=== PATIENT | female | born 1955 | race Caucasian/White ===

== ENCOUNTER → 2020-02-07 | Outpatient (CLI) | payer OTHER ==
--- NOTE | 2020-02-07 13:23 | WOMENS IMAGING REPORT ---
EXAM DESCRIPTION: BONE DENSITY HIP/SPINE IMAGES COMPLETED DATE/TIME: 02/07/2020 1:03 pm REASON FOR STUDY: Z01.89 ENCOUNTER FOR OTHER SPECIFIED SPECIAL EXAMINATIONS Z01.89 ENCOUNTER FOR OT HER SPECIFIED SPECIAL EXAMINATIONS COMPARISON: 10/22/2015 TECHNIQUE: Dual-Energy X-ray Absorptiometry (DEXA) of the AP Spine and Hip. LIMITATIONS: None. FINDINGS: LUMBAR SPINE: The bone mineral density (BMD) measured from L1-L4 in the AP projection correlates with a T-score of -0.7, which is normal as defined by the World Health Organization. BMD Change vs Baseline: +9.7% HIP: The bone mineral density (BMD) measured in the left hip correlates with a T-score of -2.1, which is o steopenia as defined by the World Health Organization. BMD Change vs Baseline: -8.5% 10 year Fracture Risk Assessment: Major Osteoporotic Fracture: 11% Hip Fracture: 1.9% IMPRESSION: 1. LUMBAR SPINE WHO CLASSIFICATION: NORMAL. 2. HIP WHO CLASSIFICATION: OSTEOPENIA. COMMENT: The World Health Organization defines low BMD as follows: T-score: Normal: At or above -1.0 Osteopenia: Between -1.0 and -2.5 Osteoporosis: At or below -2.5 without fractures Established osteoporosis: At or below -2.5 with fractures In general, you may wish to consider: Diagnosis Treatment Follow-up DEXA Normal BMD Prevention 2-3 years Osteopenia Prevention/Therapy 1-2 years Osteoporosis Therapy Yearly TECHNICAL DOCUMENTATION: JOB ID: [id number] 2010 [employer]- All Rights Reserved Reading location - IP/workstation name: [email or web address]
== END ==
LOC: WI 12:43
PROVIDERS: ATTEND Clinical Nurse Specialist Adult Health
DX: M85.88 Other specified disorders of bone density and structure, other site (principal)
CPT/HCPCS: 77080

== ENCOUNTER 2020-03-09 06:35 | Day surgery (SDC) | payer MEDICARE, OTHER ==
[~2020-03-09 06:35] MED LIST: KETOROLAC TROMETHAMINE 0.45% 4 DROP/0.4 ML DROPERETTE OS PRN
[2020-03-09] MEDS: CYCLOPENTOLATE 0.2%/PHENYLEPHRINE 1% OPH SOLN 2 ML OS PRN ×3 (06:50→07:12)
[2020-03-09] MEDS: TETRACAINE HCL 0.5% OPH SOLN 4 ML OS PRN ×3 (06:50→07:32)
[2020-03-09] MEDS: TROPICAMIDE 1% OPH SOLN 15 ML OS PRN ×3 (06:50→07:12)
[2020-03-09] MEDS: BESIFLOXACIN HCL 0.6% OPH SUSP 5 ML BOTTLE OS PRN ×4 (06:50→07:58)
[2020-03-09] MEDS ORDERED: MIDAZOLAM 2 MG/2 ML INJ ONE ×2 (07:11→07:39)
[2020-03-09] MEDS: LIDOCAINE 1%/PHENYLEPHRINE 1.5% 1 ML VIAL ONE ×2 (07:41→07:42)
[2020-03-09] MEDS: EPINEPHRINE INJ/PF 1 MG/1 ML AMPULE ONE ×2 (07:41→07:42)
[2020-03-09] MEDS: CHONDR SU A NA/HYALUR INTRAOC KIT (SURGICARE) ONE ×2 (07:41→07:42)
[2020-03-09] MEDS: PREDNISOLONE ACETATE 1% OPH SUSP 5 ML OS PRN ×2 (07:58)
[2020-03-09] MEDS: DORZOLAMIDE HCL 2%/TIMOLOL MALEAT 0.5% OPH SOLN 10 ML OS PRN ×2 (07:58)
--- NOTE | 2020-03-09 11:30 | Operative Report ---
Operative Report-[facility] Operative Report: DATE OF SURGERY: 03/09/2020 PREOPERATIVE DIAGNOSIS: Cataracts, left eye POSTOPERATIVE DIAGNOSIS: Cataract, left eye OPERATION: Cataract extraction with insertion of an IOL of the left eye. Intraocular Lens Model: [29.5 SN 60 WF] She underwent surgery for difficulty seeing road signs SURGEON: David Izquierdo MD ANESTHESIA: Topical PROCEDURE: After obtaining appropriate consent, the patient's left eye was prepped and draped in a sterile fashion as well as the surgeon in the sterile manner and cataract surgery was started. First a paracentesis blade was used to make a side-port incision. Viscoelastic was used to inflate the anterior chamber. Next a 2.4 mm incision was made with a 2.4 mm blade, clear corneal temporarily. A continuous capsulorrhexis was made using a cystotome and Utrata forceps. Following this hydrodissection was carried out to make the lens fully loose and mobile and it was rotated 90 degrees. Following this, a divide and conquer technique was used to phacoemulsify the lens. The remaining cortex was removed with an irrigation/aspiration. Provisc was instilled into the capsular bag to inflate the bag.The intraocular lens was placed. The remaining viscoelastic material was removed with irrigation/aspiration. Following this, the incision was found to be watertight. Besivance and Cosopt was instilled into the eye and a protective shield was placed over the eye. The patient was returned to the postoperative recovery in a stable condition.
== END 2020-03-09 08:33 | disposition home or self-care (01) ==
LOC: SC 06:35
PROVIDERS: ATTEND Internal Medicine
DX: H25.12 Age-related nuclear cataract, left eye (principal); H40.033 Anatomical narrow angle, bilateral; H35.372 Puckering of macula, left eye; H35.363 Drusen (degenerative) of macula, bilateral; H52.4 Presbyopia; F41.9 Anxiety disorder, unspecified; Z87.891 Personal history of nicotine dependence; Z79.82 Long term (current) use of aspirin; D64.9 Anemia, unspecified
CPT/HCPCS: 66984; V2632; J2250; J3490 ×2; A9270; J0171; 142